=== PATIENT | female | born 1995 | race Caucasian/White ===

== ENCOUNTER 2016-07-30 15:22 | Observation (INO) ==
[2016-07-30 16:56] LABS: Bilirubin,Urine Negative (Negative); Blood,Urine Negative (Negative); Clarity,Urine Cloudy (Clear); Color,Urine Yellow (Yellow); Glucose,Urine (UA) Normal (Normal); Ketones,Urine Negative (Negative); Leukocyte Esterase,Urine Negative (Negative); Nitrite,Urine Negative (Negative); PH,Urine 6.5 pH Units (5.0-8.0); Protein,Urine Negative (Neg-Trace); Urobilinogen,Urine Normal (Normal)
[2016-07-30 16:58] LABS: Bacteria,Urine None Seen per hpf (None-Few); Hyaline Casts,Urine None Seen per lpf (None-Few); RBC,Urine 0-3 per hpf (0-3); Squamous Epithelial Cell,Urine Many per lpf (None-Few); WBC,Urine 0-3 per hpf (0-3)
--- NOTE | 2016-07-30 17:09 | OB/GYN Progress Note ---
Date of Encounter: 07/30/16 Time of Encounter: 17:05 Subjective - Subjective Principal diagnosis: cramping, pressure Interval history: 21 year-old presenting at 32 weeks gestation from office for cramping and pressure with SVE in office 1.5/-2. Pt reports intermittent discomfort since having intercourse yesterday. She denies LOF or VB. She does report urinary frequency as well. No fever, chills, flank pain, or other complaints. Good FM. Antepartum ROS: movement normal, contractions, no loss of fluid, no vaginal bleeding Objective - Vital Signs Vital Signs: Intake and Output 07/30/16 07/30/16 07/30/16 07:59 15:59 23:59 Other: Weight 150.9 kg Patient Weight 07/30/16 23:59 Weight 150.9 kg - Exam FHR comments: FHT 145BPM with moderate variability. Possible FHT deceleration noted although tracing is broken. Will continue to monitor. Abdomen: Present: soft, gravid. Absent: tenderness Uterus: Present: normal. Absent: tenderness Cervical dilation: 1.5 Cervix effacement: 70 station: -2 Comments: VE unchanged from office exam. GC and GBS cultures collected. - Labs Labs: Abnormal lab results Urine Clarity Cloudy (Clear) A 07/30/16 15:45 Ur Squamous Epith Cells Many per lpf (None-Few) H 07/30/16 15:45
--- NOTE | 2016-07-30 17:23 | OB/GYN History & Physical ---
Date of Encounter: 07/30/16 Time of Encounter: 17:21 Assessment and Plan (1) uterine contractions in third trimester, antepartum Current visit: Yes Status: Acute [place] with UC every 11 minutes with irritability in between. SVE 1.570/-2 unchanged from exam in office earlier today. Will give Celestone and IV fluid bolus. Plan for observation through steroid time. US for growth and fluid. GC and GBS cultures pending. UA pending. CBC ordered. (2) 32 weeks gestation of Current visit: Yes Status: Acute (3) Rh negative status during Current visit: Yes Status: Acute Qualifiers: Trimester: third trimester Qualified Code(s): O09.893 - Supervision of other high risk pregnancies, third trimester History of Present Illness Chief complaint: cramping, pressure HPI: Ms. Ayala is a 21 year old female presenting at 32 weeks gestation from office for cramping and pressure with SVE in office 1.570/-2. Pt reports intermittent discomfort since having intercourse yesterday. She denies LOF or VB. She does report urinary frequency as well. No fever, chills, flank pain, or other complaints. Good FM. She does have a history of Chlamydia with this although LYLY was negative. Past Med Surg Social Fam HX - Past Medical History Medical history: no medical history Psychiatric history: no psych history - Social History Smoking Status: Smoker, status unknown Smokeless Tobacco Status: No Alcohol use: occasionally Drug use: none Obstetrical History - Pregnancies : 1 Medications and Allergies Amoxicillin/Clavulanate [Augmentin] 875 mg PO BIDWM #20 tablet 12/23/14 [Rx] Doxylamine/Pyridoxine HCl [Khadar Maza 10-10 mg Tablet] 1 each PO BID #14 tablet. 04/06/16 [Rx] Allergies No Known Allergies Allergy (Verified 12/23/14 19:56) Review of System OB All systems PM: reviewed and no additional remarkable complaints except as stated Exam - Constitutional Constitutional: well developed, well nourished, mild distress - HEENT HEENT: Mucus Membranes Moist - Lungs Respiratory exam: CTAB - Cardiovascular Cardiovascular exam: RRR, +S1, +S2 - Abdomen Abdomen: Present: gravid, non tender - Extremities Extremities exam: normal inspection - Vulva Vulva: bilateral: normal - Vagina Vagina: Present: normal moisture - Cervix Dilation: 1 (1.5) Effacement: 70 Station: -2 - Uterus Uterus exam: Present: normal size - Anus/Rectum Anus/Rectum: Present: normal perianal skin Results Abnormal lab results Urine Clarity Cloudy (Clear) A 07/30/16 15:45 Ur Squamous Epith Cells Many per lpf (None-Few) H 07/30/16 15:45 All other labs normal.
[2016-07-30] MEDS ORDERED: Ringers Solution, Lactated 1,000 ML IVC ONE (17:31)
[2016-07-30] MEDS ORDERED: Ringers Solution, Lactated 1,000 ML ONE (17:46)
[2016-07-30] MEDS: Betamethasone Acet/SodPhos 6 MG/ML MDV IM SCH (17:48)
[2016-07-30 18:19] LABS: Basophils # 0.1 K/mcL (0.0-0.2); Basophils % 0.3 %; Eosinophils # 0.1 K/mcL (0.0-0.6); Eosinophils % 0.7 %; Hematocrit 32.8 % (35.3-44.9); Hemoglobin 11.2 g/dL (11.5-15.4); Immature Granulocytes % 0.9 % (0-4); Lymphocytes # 3.3 K/mcL (0.6-4.6); Lymphocytes % 18.9 %; Mean Corpuscular HGB Conc 34.1 g/dL (31.6-35.5); Mean Corpuscular Hemoglobin 29.9 pg (28.0-33.3); Mean Corpuscular Volume 87.7 fL (83.0-100.0); Mean Platelet Volume 10.9 fL (9.4-12.4); Monocytes # 0.8 K/mcL (0.0-1.3); Monocytes % 4.8 %; Neutrophils # 12.9 K/mcL (1.6-8.9); Platelet Count 286 K/mcL (140-400); Red Blood Count 3.74 M/mcL (3.82-4.97); Red Cell Distribution Width 12.9 % (11.5-14.5); Segmented Neutrophils % 74.4 %
--- NOTE | 2016-07-30 22:40 | OB/GYN Progress Note ---
Date of Encounter: 07/30/16 Time of Encounter: 22:36 - Assessment and Plan (1) uterine contractions in third trimester, antepartum Current Visit: Yes Status: Acute Stable antepartum. Continue current management plan. US reviewe fetus is in the 58 percentile, but OLVIN is low in the less than 5th percentile at 8.2cm. US discussed with Dr. Auguste. Will enourage patient to hydrate overnight and reevaluate in AM. Subjective - Subjective Interval history: Patient states is feeling more comfortable, states contractions have decreased and only approximately 3 times an hour. Patient denies vaginal bleeding leaking of fluid. Endorses good movement Antepartum ROS: movement normal, contractions (Pt now states only feels contractions a couple times an hour. ), no new complaints, no loss of fluid, no vaginal bleeding Objective - Vital Signs Vital Signs: Intake and Output 07/30/16 07/30/16 07/30/16 07:59 15:59 23:59 Intake Total 1240 / 1240 Balance 1240 / 1240 Intake: IV Fluids 1000 / 1000 Lactated Ringers 1,000 ML 1000 / 1000 @ 3750 mls/hr IVC .Q16M ONE Rx#:[id number] Oral 240 / 240 Other: Meal Dinner Percent of Meal Consumed 90% Weight 150.9 kg Patient Weight 07/30/16 23:59 Weight 150.9 kg - Exam FHR: auscultation normal (Baseline 125/ +accels/ Occasional variable noted. ) Auscultation: bilateral: normal Abdomen: Present: soft, gravid - Labs Labs: Abnormal lab results WBC 17.4 K/mcL (4.3-11.1) H 07/30/16 17:58 RBC 3.74 M/mcL (3.82-4.97) L 07/30/16 17:58 Hgb 11.2 g/dL (11.5-15.4) L 07/30/16 17:58 Hct 32.8 % (35.3-44.9) L 07/30/16 17:58 Neutrophils # 12.9 K/mcL (1.6-8.9) H 07/30/16 17:58 Urine Clarity Cloudy (Clear) A 07/30/16 15:45 Ur Squamous Epith Cells Many per lpf (None-Few) H 07/30/16 15:45
[2016-07-30] MEDS: Acetaminophen 325 MG TABLET PO PRN (23:21)
[2016-07-31] MEDS ORDERED: Prenatal Vit/FA 1 EACH TABLET PO SCH (09:00)
[2016-07-31] MEDS ORDERED: Ringers Solution, Lactated 1,000 ML IVC ONE (12:25)
[2016-07-31] MEDS ORDERED: Ringers Solution, Lactated 1,000 ML ONE (12:25)
[2016-07-31] MEDS ORDERED: Acetaminophen 325 MG TABLET PO ONE (12:26)
[2016-07-31] MEDS: Acetaminophen 325 MG TABLET PO PRN (12:30)
--- NOTE | 2016-07-31 12:37 | OB/GYN Progress Note ---
Date of Encounter: 07/31/16 Time of Encounter: 12:34 - Assessment and Plan (1) 32 weeks gestation of Current Visit: Yes Status: Acute admitted for observation (2) uterine contractions in third trimester, antepartum Current Visit: Yes Status: Acute continue EFM and toco monitoring Subjective - Subjective Principal diagnosis: contractions Interval history: Patient reports feeling low back pain and cramping. 3-4 contractions noted per hour. Discussed patient with Dr. Navarro. Will give IV fluid bolus and continue monitoring. Patent had history of BV and yeast so a vaginosis panel was collected. SVE 1/60/-2 and ballotable per NICHOL Ferguson. FHR 130 bpm moderate variability +15x15 accels no decels noted. Cat. 1 tracing. Antepartum ROS: new complaints, movement normal, contractions, no loss of fluid, no vaginal bleeding Objective - Vital Signs Vital Signs: Intake and Output 07/30/16 07/31/16 07/31/16 23:59 07:59 15:59 Intake Total 1240 / 1240 Balance 1240 / 1240 Intake: IV Fluids 1000 / 1000 Lactated Ringers 1,000 ML 1000 / 1000 @ 3750 mls/hr IVC .Q16M ONE Rx#:[id number] Oral 240 / 240 Other: Meal Dinner Percent of Meal Consumed 90% Weight 150.9 kg - Exam FHR: auscultation normal, category 1 FHR comments: 130 bpm baseline Auscultation: bilateral: normal Abdomen: Present: normal appearance, soft, gravid Uterus: Present: normal Cervical dilation: 1 Cervix effacement: 60 station: -2 - Labs Labs: Abnormal lab results WBC 17.4 K/mcL (4.3-11.1) H 07/30/16 17:58 RBC 3.74 M/mcL (3.82-4.97) L 07/30/16 17:58 Hgb 11.2 g/dL (11.5-15.4) L 07/30/16 17:58 Hct 32.8 % (35.3-44.9) L 07/30/16 17:58 Neutrophils # 12.9 K/mcL (1.6-8.9) H 07/30/16 17:58 Urine Clarity Cloudy (Clear) A 07/30/16 15:45 Ur Squamous Epith Cells Many per lpf (None-Few) H 07/30/16 15:45
[2016-07-31 13:44] LABS: Candida DNA Not Detected (Not Detect); Gardnerella DNA Not Detected (Not Detect); Trichomonas DNA Not Detected (Not Detect)
[2016-07-31] MEDS: Betamethasone Acet/SodPhos 6 MG/ML MDV IM SCH (16:14)
--- NOTE | 2016-08-06 08:07 | Discharge Summary ---
Date of Encounter: 07/31/16 Time of Encounter: 16:11 - Discharge Diagnosis (1) 32 weeks gestation of Priority: Primary Status: Acute Comments: admit for observation labor (2) uterine contractions in third trimester, antepartum Priority: Secondary Status: Acute Comments: betamethasone x 2 no cervical change in 48 hours RNST - Discharge Medications Prescriptions: HydrOXYzine Pamoate [Vistaril] 25 mg PO HS #10 capsule Home Medications: Doxylamine/Pyridoxine HCl [Khadar Maza 10-10 mg Tablet] 1 each PO BID #14 tablet. 04/06/16 [Rx] HydrOXYzine Pamoate [Vistaril] 25 mg PO HS #10 capsule 07/31/16 [Rx] Allergies/Adverse Reactions: Allergies No Known Allergies Allergy (Verified 12/23/14 19:56) Data Procedures and tests throughout hospitalization: Laboratory Tests 07/30/16 07/30/16 07/30/16 15:45 16:56 17:58 WBC 17.4 H RBC 3.74 L Hgb 11.2 L Hct 32.8 L MCV 87.7 MCH 29.9 MCHC 34.1 RDW 12.9 Plt Count 286 MPV 10.9 Immature Gran % 0.9 Seg Neutrophils % 74.4 Lymphocytes % 18.9 Monocytes % 4.8 Eosinophils % 0.7 Basophils % 0.3 Neutrophils # 12.9 H Lymphocytes # 3.3 Monocytes # 0.8 Eosinophils # 0.1 Basophils # 0.1 Urine Color Yellow Urine Clarity Cloudy A Urine pH 6.5 Ur Specific [place] 1.020 Urine Protein Negative Urine Glucose (UA) Normal Urine Ketones Negative Urine Blood Negative Urine Nitrite Negative Urine Bilirubin Negative Urine Urobilinogen Normal Ur Leukocyte Esterase Negative Urine Microscopic RBC 0-3 Urine Microscopic WBC 0-3 Ur Squamous Epith Cells Many H Urine Bacteria None Seen Hyaline Casts None Seen Ur Culture Indicated? NO Palma species DNA Chlam trachomat DNA PCR NOT DETECTED Gardnerella DNA Probe N.gonorrhoeae DNA (PCR) NOT DETECTED Trichomonas DNA Probe 07/31/16 12:46 WBC RBC Hgb Hct MCV MCH MCHC RDW Plt Count MPV Immature Gran % Seg Neutrophils % Lymphocytes % Monocytes % Eosinophils % Basophils % Neutrophils # Lymphocytes # Monocytes # Eosinophils # Basophils # Urine Color Urine Clarity Urine pH Ur Specific [place] Urine Protein Urine Glucose (UA) Urine Ketones Urine Blood Urine Nitrite Urine Bilirubin Urine Urobilinogen Ur Leukocyte Esterase Urine Microscopic RBC Urine Microscopic WBC Ur Squamous Epith Cells Urine Bacteria Hyaline Casts Ur Culture Indicated? Palma species DNA Not Detected Chlam trachomat DNA PCR Gardnerella DNA Probe Not Detected N.gonorrhoeae DNA (PCR) Trichomonas DNA Probe Not Detected - Impressions ITS Impressions Obstetrics Ultrasound 07/30/16 17:46 IMPRESSION: Single live intrauterine with gestational age of 31 weeks 4 days by current sonographic biometry. The estimated due date is 09/27/2016. Below normal amniotic fluid volume less than 5th percentile as detailed. D/ / Clemente Calvillo MD / Clemente Calvillo MD Interpreting Provider: Clemente Calvillo MD Date of admission: 07/30/16 15:22 Primary care physician: Kami Britton Discharging clinician: Thao Cobian Anticipated date of discharge: 07/31/16 - Patient Status Disposition: Home, Self-Care Condition: Good - Discharge Instructions Follow Up With: Kami Parra MD [Primary Care Provider] - Thao Cobian CNM [Non-Partnered Physician] - Additional Instructions: LABOR AND DELIVERY DISCHARGE INSTRUCTIONS Signs and Symptoms to be Reported to your Doctor Immediately: * Sudden gush, continuous or intermittent lead of fluid from vagina (note the time of gush and color of fluid) * Onset of bright red vaginal bleeding with or without pain (if you had a vaginal exam during this visit you may notice some dark red spotting. This is normal.) * Lower abdominal cramping or backache that is premenstrual-like feeling. * More than 6 contractions in one hour. * Burning during urination, having to urinate more frequently or pain in your mid-back. * A change in the baby's activity. This could be an increase or decrease in activity. * Severe headache which does not go away with tylenol. * Sudden swelling in the face, hands, arms and/or legs. * Upper abdominal pain - sometimes associated with heartburn or nausea and is not relieved by Maalox, Mylanta or Tums. * Dizziness or blurred vision or visual disturbances (seeing stars/lights). * Kick Counts One hour after a meal, lay down on one side in a quiet place. Count the number of margarita the baby moves during an hour. If less than 6 movements, notify your physician. Diet: *Force fluids - 8-10 tall glasses of fluid per day. May include popsicles and jello. 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
== END 2016-07-31 16:45 | disposition home or self-care (01) ==
LOC: 1NENULAB
PROVIDERS: ADMIT Advanced Practice Midwife; ATTEND Advanced Practice Midwife

== ENCOUNTER 2016-09-04 02:01 | Inpatient (IN) ==
--- NOTE | 2016-09-04 00:04 | OB/GYN Progress Note ---
Date of Encounter: 09/04/16 Time of Encounter: 00:02 - Assessment and Plan (1) 38 weeks gestation of Current Visit: Yes Status: Acute (2) Uterine contractions Current Visit: Yes Status: Acute [place] contractions for 2 hours and recheck cervix Subjective - Subjective Interval history: Pt states has been having contractions every 5 minutes for this evening. Reports good movement, denies vaginal bleeding and leaking of fluid. Antepartum ROS: movement normal, contractions, no loss of fluid, no vaginal bleeding Objective - Exam Auscultation: bilateral: normal Abdomen: Present: normal appearance, soft, gravid Uterus: Present: normal Cervical dilation: /-
[~2016-09-04 02:01] MED LIST: *HR* Nalbuphine 20 MG/ML AMPUL IVP PRN; Ringers Solution, Lactated 1,000 ML ONE
--- NOTE | 2016-09-04 02:26 | OB/GYN History & Physical ---
Date of Encounter: 09/04/16 Time of Encounter: 02:24 Assessment and Plan (1) 38 weeks gestation of Current visit: Yes Status: Acute (2) Uterine contractions Current visit: Yes Status: Acute Patient with cervical change from 3 cm to 4 cm, will admit patient for labor Patient may half Nubain and epidural as desired Clear liquid diet Anticipate History of Present Illness HPI: Ms. Ayala is a 21 year old female presents to triage with contractions that started this afternoon had become progressively worse this evening and then became regular at every 5 minutes apart. complicated with SGA infant and placental lakes noted on last ultrasound. Reports good movement, denies leaking of fluid or vaginal bleeding. Labs: A-, GBS negative, rubella immune, all other serologies negative Past Med Surg Social Fam HX - Past Medical History Medical history: no medical history Psychiatric history: no psych history - Social History Smoking Status: Smoker, status unknown Packs per day: 1/2 Smokeless Tobacco Status: No Alcohol use: occasionally Drug use: none - Family History Maternal Grandmother Living Status: Still Living Hx Family Cardiac Disorders: No Hx Family Respiratory Disorders: No Hx Family Cancer: No Hx Family GI Disorders: Yes (chron's) Hx Family Genitourinary Disorders: No Hx Family Endocrine Disorder: Yes (diabetic) Hx Family Musculoskeletal Disorders: No Hx Family Neuromuscular Disorders: No Hx Family Neurologic Disorders: No Hx Family HEENT Disorders: No Hx Family Autoimmune Disorders: No Hx Family Reproductive Disorders: No Hx Family Psychosocial Disorders: No Hx Family Medical Disorders: No Obstetrical History - Pregnancies : 1 Para: 0 Term: 0 : 0 Ab's: 0 Livin Medications and Allergies Formula Tablet 1 tab PO DAILY 09/04/16 [History] Allergies No Known Allergies Allergy (Verified 12/23/14 19:56) Exam - Vital Signs Vital signs: Initial Vital Signs Temp Pulse Resp BP 98.4 F 83 16 142/85 09/04/16 00:16 09/04/16 00:16 09/04/16 00:16 09/04/16 00:16 - Constitutional Constitutional: well developed, well nourished, no acute distress, average body habitus - Neck Neck exam: full ROM - Lungs Respiratory exam: CTAB - Cardiovascular Cardiovascular exam: RRR, +S1, +S2 - Abdomen Abdomen: Present: bowel sounds normal, gravid, non tender - Extremities Extremities exam: normal capillary refill, normal inspection - Vulva Vulva: bilateral: normal - Vagina Vagina: Present: normal moisture Results Result Diagrams: 09/04/16 00:40 All other labs normal. - VTE Reasons for not Prescribing Prophylaxis: Medical contraindication
[2016-09-04] MEDS ORDERED: Naloxone 0.4 MG/ML INJ IVP PRN (02:59)
[2016-09-04] MEDS ORDERED: Famotidine 20 MG/2 ML VIAL IVP PRN (02:59)
[2016-09-04] MEDS ORDERED: Ondansetron 4 MG/2 ML VIAL IVP PRN (02:59)
[2016-09-04] MEDS ORDERED: Metoclopramide 10 MG/2 ML VIAL IVP PRN (02:59)
[2016-09-04] MEDS ORDERED: Ringers Solution, Lactated 1,000 ML IVC SCH (03:00)
[2016-09-04 03:34] LABS: Basophils % 0.2 %; Eosinophils # 0.1 K/mcL (0.0-0.6); Eosinophils % 0.4 %; Hemoglobin 11.2 g/dL (11.5-15.4); Immature Granulocytes % 0.6 % (0-4); Lymphocytes # 3.5 K/mcL (0.6-4.6); Lymphocytes % 20.3 %; Mean Corpuscular HGB Conc 33.9 g/dL (31.6-35.5); Mean Corpuscular Hemoglobin 29.1 pg (28.0-33.3); Mean Corpuscular Volume 85.7 fL (83.0-100.0); Mean Platelet Volume 11.3 fL (9.4-12.4); Monocytes # 1.2 K/mcL (0.0-1.3); Neutrophils # 12.3 K/mcL (1.6-8.9); Platelet Count 305 K/mcL (140-400); Red Blood Count 3.85 M/mcL (3.82-4.97); Red Cell Distribution Width 12.9 % (11.5-14.5); Segmented Neutrophils % 71.5 %
[2016-09-04] MEDS ORDERED: Ringers Solution, Lactated 1,000 ML ONE (03:46)
[2016-09-04] MEDS ORDERED: *HR* FentaNYL (PF) 100 MCG/2 ML VIAL ONE (03:53)
[2016-09-04] MEDS ORDERED: *HR* Ropivacaine/PF 0.2% 10 ML AMPUL ONE ×2 (03:53→04:35)
[2016-09-04] MEDS ORDERED: Epidural Premix (fent/bupiv) 110 ML EP ONE ×2 (03:53→06:53)
--- NOTE | 2016-09-04 04:21 | Anesthesia Evaluation PreOp ---
Date of Encounter: 09/04/16 Time of Encounter: 03:50 - Past History Planned Operation: nieves Cardiac History: Denies any Significant Hx Pulmonary History: Smoker (1 ppd) TUGBOAT CAPTAIN History: Denies Any Significant HX Other Medical History: Denies Any Significant HX Anesthesia History: No Prior Anesthetic Complications, Past Anesthesia : Yes (37 plus 4, ) Alcohol Use: occasionally Drug use: none Medications and Allergies Formula Tablet 1 tab PO DAILY 09/04/16 [History] Allergies No Known Allergies Allergy (Verified 12/23/14 19:56) - Meds/Allergy Pre-op Review Medications Reviewed: Yes Allergies Reviewed: Yes Beta Blockers on Current Med List: No Anesthesia Results - Labs 09/04/16 00:40 Anesthesia Exam O2 Sat Height 1.78 m Weight 71.2 kg Vital Signs Temp Pulse Resp BP 98.4 F 83 16 142/85 09/04/16 00:16 09/04/16 00:16 09/04/16 00:16 09/04/16 00:16 Height: 70 Weight: 71 - HEENT Pupil (Motor): Pupils equal Mallampati: II Teeth: Normal Oral Opening: Greater than 3 - TUGBOAT CAPTAIN LOC: Oriented TUGBOAT CAPTAIN Motor: Normal RUE, Normal LUE, Normal RLE, Normal LLE, Normal Face TUGBOAT CAPTAIN Sensory: Normal: RUE, LUE, RLE, LLE, Face - Cardiac Rhythm: Regular Murmur: None JVD: No Carotid Bruit: No - Pulmonary Breath Sounds: bilateral Clear Respiratory Effort: Symmetrical Anesthesia Assess/Plan ASA Score: 2 Modified Christ Scale for Level of Consciousness: Cooperative, oriented, and tranquil Anesthetic Plan: Regional Autologous Blood: No Monitoring Plan: Standard Monitors
[2016-09-04] MEDS ORDERED: *HR* FentaNYL (PF) 100 MCG/2 ML VIAL EP ONE (04:23)
[2016-09-04] MEDS ORDERED: *HR* Ropivacaine/PF 0.2% 10 ML AMPUL EP ONE (04:23)
[2016-09-04] MEDS ORDERED: EPHEDrine 50 MG/ML VIAL IVP PRN (04:23)
--- NOTE | 2016-09-04 04:26 | Anesthesia Procedures ---
Date of Encounter: 09/04/16 Time of Encounter: 04:24 Procedures: Anesthesia - Epidural/Spinal Patient ID/Chart reviewed: Yes Patient examined: Yes OB Eval: Gestational age: 37 OB Eval: : 1 OB Eval: Hx Para: 0 OB Eval: Contractions: Non-stressed pattern Consent Obtained: Yes Supplemental Oxygen: None/Room Air Site Prep: Aseptic Technique, 0.5% Chlorhexidine/Alcohol Patient position: upright Local Anesthetic: Lidocaine 1% Amount of Local Anesthetic used: 3 Touhy Needle Gauge: 18 Touhy Needle Depth (cm): 5 Catheter Depth at Skin (cm): 12 Test Dose (1.5% Lido + Epi): Volume given (mls): 3 Test Dose Result: Negative Loading Dose: 0.25% Marcaine (mls): 5 Loading Dose: Fentanyl (mcg): 100 Loading Dose: Other: 3ml nss Loading Dose Administered: Thru Touhy Needle Infusion Med: 0.125% Bupivacaine w/ 2 mcg/ml Fentanyl Infusion Rate (mls/hr): [address]: Tegaderm Interspace Used: L3-L4 Loss of Resistance (ALBERTO): Yes Blood: No CSF: No Paresthesia: No Procedure: strict asepsis, good alberto, fhr unchanged
[2016-09-04] MEDS ORDERED: Epidural Premix (fent/bupiv) 110 ML EP SCH (04:30)
[2016-09-04] MEDS ORDERED: Oxytocin 20 units/ LR 1000 mL 20 UNIT/1,000 ML BAG IVC ONE ×2 (04:53→06:59)
--- NOTE | 2016-09-04 05:24 | OB/GYN Procedure Note ---
Delivery - Delivery Date: 09/04/16 Provider: Jacqueline Alberto ([place]) Intrapartum events: none Delivery induction: none Delivery monitor: external FHT, external uterine Anesthesia: epidural Estimated Blood Loss: 150 - (s) Infant A Infant Delivery Date: 09/04/16 Infant Delivery Time: 04:52 Presentation: vertex Position: BARRY Route of delivery: Gender: Male Viability: Viable Pounds: 5 Ounces: 7 Weight Gram: 2.47 kg at 1 minute: 8 at 5 mins: 9 Shoulder Dystocia: not encountered Specimens collected: cord blood Placenta: spontaneous Cord: 3 umbilical vessels - Repair Episiotomy: none Laceration Description: Labial - Complications Delivery complications: none - Disposition Mom disposition: stable in LDR [place] disposition: stable in LDR - Comments Comments: Pt complete began maternal bearing down efforts to of liveborn male. Vertex delivered BARRY, no nuchal cord noted, shoulders easily followed. no dystocia noted vigorous infant placed on maternal abdomen. Apgars 8/9. Placenta delivered spontaneously and intact on inspection EBL 150. bilateral labial tears noted hemostatic and not repaired. Dr. Auguste present for entire procedure. .
[2016-09-04 06:16] LABS: Amphetamine Screen,Urine Negative ng/mL (Cutoff=1000); Barbiturate Screen,Urine Negative ng/mL (Cutoff=200); Benzodiazepines Screen,Urine Negative ng/mL (Cutoff=200); Cannabinoid Screen,Urine Negative ng/mL (Cutoff = 50); Cocaine Screen,Urine Negative ng/mL (Cutoff= 300); Opiate Screen,Urine Negative ng/mL (Cutoff=300); Phencyclidine Screen,Urine Negative ng/mL (Cutoff=25)
[2016-09-04] MEDS ORDERED: Acetaminophen 325 MG TABLET PO PRN (07:38)
[2016-09-04] MEDS ORDERED: Lanolin 7 G OINT...G. TP PRN (07:38)
[2016-09-04] MEDS ORDERED: Benzocaine/Menthol 56 GM AEROSOL SPRAY TP PRN (07:38)
[2016-09-04] MEDS ORDERED: Oxytocin 20 units/ LR 1000 mL 20 UNIT/1,000 ML BAG IVC SCH (07:38)
[2016-09-04] MEDS ORDERED: Prenatal Vit/FA 1 EACH TABLET PO SCH (09:00)
[2016-09-04] MEDS: Ibuprofen 600 MG TABLET PO PRN ×3 (09:29→22:19)
--- NOTE | 2016-09-05 08:14 | Discharge Summary ---
Date of Encounter: 09/05/16 Time of Encounter: 08:11 - Discharge Diagnosis (1) Vaginal delivery Priority: Primary Status: Acute Comments: Continue routine care 3 day hold discharge patient today to guest follow up in 4-6 weeks with CNM - Discharge Medications Prescriptions: Ibuprofen [Motrin] 600 mg PO Q6HR PRN #60 tablet PRN Reason: Cramping Home Medications: Ibuprofen [Motrin] 600 mg PO Q6HR PRN #60 tablet 09/05/16 [Rx] Vit/FA 1 each PO DAILY tablet 09/05/16 [Rx] Allergies/Adverse Reactions: Allergies No Known Allergies Allergy (Verified 12/23/14 19:56) Data Procedures and tests throughout hospitalization: Laboratory Tests 09/04/16 09/04/16 09/04/16 00:40 00:55 05:40 WBC 17.2 H RBC 3.85 Hgb 11.2 L Hct 33.0 L MCV 85.7 MCH 29.1 MCHC 33.9 RDW 12.9 Plt Count 305 MPV 11.3 Immature Gran % 0.6 Seg Neutrophils % 71.5 Lymphocytes % 20.3 Monocytes % 7.0 Eosinophils % 0.4 Basophils % 0.2 Neutrophils # 12.3 H Lymphocytes # 3.5 Monocytes # 1.2 Eosinophils # 0.1 Basophils # 0.0 Urine Opiates Screen Negative Ur Barbiturates Screen Negative Ur Phencyclidine Scrn Negative Ur Amphetamines Screen Negative U Benzodiazepines Scrn Negative Urine Cocaine Screen Negative U Marijuana (THC) Screen Negative Baby's Blood Type A RH NEGATIVE Mother's Blood Type A RH NEGATIVE Rhogam Indicated NO Labs on day of discharge: Labs from last 24 hours 09/04/16 05:40 Baby's Blood Type A RH NEGATIVE Mother's Blood Type A RH NEGATIVE Rhogam Indicated NO Date of admission: 09/04/16 02:01 Primary care physician: Kami Britton Consults: 09/04/16 07:38 Consult to Bench Carpenter [CONS] Routine Comment: Vaginal delivery, consult needed Consult to Clerical Warehouseman [CONS] Routine Reason for SW Consult: drug use history Discharging clinician: Thao Cobian Anticipated date of discharge: 09/05/16 - Patient Status Disposition: Home, Self-Care Condition: Good Functional capacity at discharge: independent ambulation - Discharge Instructions Follow Up With: Kami Parra MD [Primary Care Provider] - Jacqueline Alberto CNM [Advanced Practice Nurse] - - Diet and Activity Activity: increase activity as tolerated Diet: regular diet Hospital Course Reason for admission: active labor Delivery: Episiotomy: none Laceration: other (bilateral labial lacerations) Other procedures: none complications: none Discharge diagnosis: IUP at term delivered [place] baby: male (bottle feeding) Time Attestation: Total time spent providing and/or coordinating discharge services: Time Spent: Less than 30 minutes Exam - Constitutional Vitals: Temp Pulse Resp BP Pulse Ox 98.0 F 72 14 127/81 98 09/05/16 03:35 09/05/16 03:35 09/05/16 03:35 09/05/16 03:35 09/05/16 03:35 General appearance IM: A&O X 3, pleasant, answers questions appropriately - Respiratory Respiratory exam: Present: CTAB - Cardiovascular Cardiovascular exam IM: Present: RRR, +S1, +S2 - GI/Abdominal GI/Abdominal exam IM: normal bowel sounds - Uterine Tone: Firm Uterus Position: 2 Fingers Below Umbilicus, Midline - Extremities Exam Extremities exam IM: Present: full ROM, normal capillary refill, normal inspection - Neurological Exam Neurological exam: alert, oriented X3, reflexes normal
[2016-09-05] MEDS: Ibuprofen 600 MG TABLET PO PRN (08:34)
[2016-09-05 09:21] VITALS: BP 131/88
== END 2016-09-05 11:15 | disposition home or self-care (01) | DRG 775 ==
LOC: 1NENULAB → 1NENUOBS 07:37
PROVIDERS: ADMIT Advanced Practice Midwife; ATTEND Advanced Practice Midwife

== ENCOUNTER → 2018-02-11 23:15 | Observation (INO) ==
[2018-02-11 22:35] LABS: Amphetamine Screen,Urine Negative ng/mL (Cutoff=1000); Barbiturate Screen,Urine Negative ng/mL (Cutoff=200); Benzodiazepines Screen,Urine Negative ng/mL (Cutoff=200); Cannabinoid Screen,Urine Negative ng/mL (Cutoff = 50); Cocaine Screen,Urine Negative ng/mL (Cutoff= 300); Opiate Screen,Urine Negative ng/mL (Cutoff=300); Phencyclidine Screen,Urine Negative ng/mL (Cutoff=25)
--- NOTE | 2018-02-11 23:15 | Discharge Summary ---
Date of Encounter: 02/11/18 Time of Encounter: 23:14 - Discharge Diagnosis (1) Vaginal discharge during in third trimester Priority: Primary Status: Acute Comments: Nitrazine negative No pooling head is ballotable (2) 37 weeks gestation of Priority: Secondary Status: Acute Comments: Follow-up next week as scheduled Labor precautions discussed Discharge home - Discharge Medications Home Medications: Vitamins 1 tab PO DAILY 01/25/18 [History] Allergies/Adverse Reactions: Allergy/AdvReac Type Severity Reaction Status Date / Time No Known Allergies Allergy Verified 02/11/18 22:05 Data Procedures and tests throughout hospitalization: Laboratory Tests 02/11/18 22:14 Urine Opiates Screen Negative Ur Barbiturates Screen Negative Ur Phencyclidine Scrn Negative Ur Amphetamines Screen Negative U Benzodiazepines Scrn Negative Urine Cocaine Screen Negative U Marijuana (THC) Screen Negative Ur Drug Screen Interp See Below Labs on day of discharge: Labs from last 24 hours 02/11/18 22:14 Urine Opiates Screen Negative Ur Barbiturates Screen Negative Ur Phencyclidine Scrn Negative Ur Amphetamines Screen Negative U Benzodiazepines Scrn Negative Urine Cocaine Screen Negative U Marijuana (THC) Screen Negative Ur Drug Screen Interp See Below Date of admission: 02/11/18 21:52 Discharging clinician: Blanche King Anticipated date of discharge: 02/11/18 - Patient Status Disposition: Home, Self-Care Condition: Good Functional capacity at discharge: independent ambulation Overall status at discharge: patient is back to baseline - Discharge Instructions Follow Up With: Blanche King [Advanced Practice Nurse] - - Diet and Activity Activity: increase activity as tolerated Diet: regular diet 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 She denies any further loss of fluid. She reports intermittent contractions. SVE on arrival 4-5 and no change after one hour. Patient discharged home in stable condition with labor parameters. Time Attestation: Total time spent providing and/or coordinating discharge services: Time Spent: Less than 30 minutes Exam - Constitutional General appearance IM: A&O X 3, answers questions appropriately - Respiratory Respiratory exam: Present: CTAB - Cardiovascular Cardiovascular exam IM: Present: RRR, +S1, +S2 - GI/Abdominal GI/Abdominal exam IM: normal bowel sounds, no peritoneal signs - Rectal Rectal exam: deferred - Uterine Tone: Firm - Extremities Exam Extremities exam IM: Present: normal capillary refill, normal inspection, radial pulses palpable and symmetrical - Neurological Exam Neurological exam: alert, CN II-XII intact, normal gait, oriented X3, reflexes normal, no focal deficits, strengths equal and symetr throughout - VTE Reasons for not Prescribing Prophylaxis: Treatment not Indicated - Low risk for VTE
== END | disposition home or self-care (01) ==
LOC: 1NENULAB
PROVIDERS: ADMIT Advanced Practice Midwife; ATTEND Advanced Practice Midwife

== ENCOUNTER 2018-02-17 13:48 | Inpatient (IN) ==
[2018-02-17] MEDS ORDERED: EPHEDrine 50 MG/ML VIAL IVP PRN (14:23)
[2018-02-17] MEDS ORDERED: Epidural Premix (fent/bupiv) 110 ML EP SCH (14:30)
[2018-02-17] MEDS ORDERED: Ondansetron 4 MG/2 ML VIAL IVP PRN (14:32)
[2018-02-17] MEDS ORDERED: Metoclopramide 10 MG/2 ML VIAL IVP PRN (14:32)
[2018-02-17] MEDS ORDERED: Naloxone 0.4 MG/ML INJ IVP PRN (14:32)
[2018-02-17] MEDS ORDERED: *HR* Nalbuphine 10 MG/ML AMPUL IVP PRN (14:32)
[2018-02-17] MEDS ORDERED: Famotidine 20 MG/2 ML VIAL IVP PRN (14:32)
--- NOTE | 2018-02-17 14:32 | Anesthesia Evaluation PreOp ---
Date of Encounter: 02/17/18 Time of Encounter: 14:31 - Past History Planned Operation: vaginal del, spont. Cardiac History: Denies any Significant Hx Pulmonary History: Smoker [employer] History: Denies Any Significant HX Other Medical History: Denies Any Significant HX Anesthesia History: No Prior Anesthetic Complications, Past Anesthesia Alcohol Use: none Drug use: none Medications and Allergies Vitamins 1 tab PO DAILY 01/25/18 [History] Allergy/AdvReac Type Severity Reaction Status Date / Time No Known Allergies Allergy Verified 02/11/18 22:05 Anesthesia Exam - HEENT Pupil (Motor): Pupils equal Mallampati: II Teeth: Normal Oral Opening: Greater than 3 - [employer] LOC: Oriented [employer] Motor: Normal RUE, Normal LUE, Normal RLE, Normal LLE, Normal Face [employer] Sensory: Normal: RUE, LUE, RLE, LLE, Face - Cardiac Rhythm: Regular Murmur: None - Pulmonary Breath Sounds: bilateral Clear Respiratory Effort: Symmetrical Anesthesia Assess/Plan ASA Score: 2 Modified Christ Scale for Level of Consciousness: Cooperative, oriented, and tranquil Anesthetic Plan: General, Regional Monitoring Plan: Standard Monitors Recovery Plan: PACU
[2018-02-17] MEDS ORDERED: Epidural Premix (fent/bupiv) 110 ML EP ONE (14:35)
[2018-02-17] MEDS ORDERED: Lidocaine -MPF 2% 5 ML VIAL ONE (14:39)
[2018-02-17] MEDS ORDERED: Ringers Solution, Lactated 1,000 ML IVC SCH (14:45)
[2018-02-17 15:23] LABS: Amphetamine Screen,Urine Negative ng/mL (Cutoff=1000); Barbiturate Screen,Urine Negative ng/mL (Cutoff=200); Benzodiazepines Screen,Urine Negative ng/mL (Cutoff=200); Cannabinoid Screen,Urine Negative ng/mL (Cutoff = 50); Cocaine Screen,Urine Negative ng/mL (Cutoff= 300); Opiate Screen,Urine Negative ng/mL (Cutoff=300); Phencyclidine Screen,Urine Negative ng/mL (Cutoff=25)
[2018-02-17] MEDS ORDERED: Penicillin G Potassium 5,000,000 UNIT in 0.9 % Sodium Chloride Mini Bag 100 ML IVPB ONE (15:24)
[2018-02-17 15:38] LABS: Basophils % 0.3 %; Eosinophils % 0.1 %; Hematocrit 36.2 % (35.3-44.9); Immature Granulocytes % 0.7 % (0-4); Lymphocytes # 2.5 K/mcL (0.6-4.6); Lymphocytes % 17.9 %; Mean Corpuscular HGB Conc 33.1 g/dL (31.6-35.5); Mean Corpuscular Hemoglobin 28.5 pg (28.0-33.3); Mean Platelet Volume 11.5 fL (9.4-12.4); Monocytes # 0.6 K/mcL (0.0-1.3); Monocytes % 4.1 %; Platelet Count 285 K/mcL (140-400); Red Blood Count 4.21 M/mcL (3.82-4.97); Red Cell Distribution Width 12.6 % (11.5-14.5); Segmented Neutrophils % 76.9 %
[2018-02-17 16:03] LABS: Neutrophils # 10.5 K/mcL (1.6-8.9)
--- NOTE | 2018-02-17 16:06 | Anesthesia Procedures ---
Addendum entered and electronically signed by Bg Cox CRNA 02/22/18 06:18: Addendum entered and electronically signed by Deo Espinosa CRNA 02/18/18 07:20: Delivery Date: 02/17/18 Infant Delivery Time: 17:27 Original Note: Date of Encounter: 02/17/18 Time of Encounter: 15:42 Procedures: Anesthesia - Epidural/Spinal Patient ID/Chart reviewed: Yes Patient examined: Yes OB Eval: : 2 OB Eval: Hx Para: 1 OB Eval: Dilated at (cm): 6 OB Eval: Contractions: Non-stressed pattern Consent Obtained: Yes Supplemental Oxygen: None/Room Air Site Prep: Aseptic Technique, Sterile prep and drape, 0.5% Chlorhexidine/Alcohol Patient position: upright Local Anesthetic: Lidocaine 1% Amount of Local Anesthetic used: 2 Touhy Needle Gauge: 18 Touhy Needle Depth (cm): 7 Catheter Depth at Skin (cm): 10 Test Dose (1.5% Lido + Epi): Volume given (mls): 3 Test Dose Result: Negative Loading Dose: Other: 10ml from solution Loading Dose Administered: Thru Catheter Infusion Med: 0.125% Bupivacaine w/ 2 mcg/ml Fentanyl Infusion Rate (mls/hr): [address]: Tegaderm, Tape Interspace Used: L3-L4 Loss of Resistance (ALBERTO): Yes (saline) Blood: No CSF: No Paresthesia: No Procedure: vss though out procedure, FHR via rn's
[2018-02-17 16:07] LABS: Platelet Clumps Few (Not Present)
[2018-02-17] MEDS ORDERED: Lidocaine/EPI 1:200k 2% PF 20 ML VIAL ONE (16:10)
--- NOTE | 2018-02-17 16:22 | OB/GYN History & Physical ---
Date of Encounter: 02/17/18 Time of Encounter: 16:18 Assessment and Plan (1) GBS (group B Streptococcus carrier), +RV culture, currently Current visit: Yes Status: Acute Penicillin prophylaxis to start immediately and every 4 hours until delivery (2) Rh negative status during Current visit: Yes Status: Acute Rhogam evaluation . Qualifiers: Trimester: third trimester Qualified Code(s): O09.893 - Supervision of other high risk pregnancies, third trimester; Z67.91 - Unspecified blood type, Rh negative (3) 38 weeks gestation of Current visit: Yes Status: Acute Admitted for spontaneous labor at 38 weeks 1 day. Begin penicillin prophylaxis for positive GBS. Expectant management of labor. Patient may have epidural when she desires. Anticipate (4) Non-stress test reactive Current visit: Yes Status: Acute FHR 130 bpm, moderate variability, +15x15 accels, no decels. Ctx q2-4 minutes. History of Present Illness Chief complaint: Spontaneous Labor at 38w1d HPI: Ms. Ayala is a 22 year old female at 38 weeks 1 day gestation. She reports positive movement, denies vaginal bleeding and leakage of fluid. Patient states she started jacinda today at 11:00. She reports her last exam in the office was 4 cm last week. Blood type A- GBS positive HBsAg negative Rubella immune Varicella immune HIV-negative T Palladium negative Past Med Surg Social Fam HX - Past Medical History Source: patient Medical history: no medical history Psychiatric history: no psych history - Past Surgical History Surgical History: other Additional surgical history: T&A - Social History Smoking Status: Current every day smoker Packs per day: half Smokeless Tobacco Status: No Alcohol use: none Drug use: none Current living situation: Home - Independent Activity Level: Independent ambulation Recent Out of Country Travel Within the Last 8 Weeks: No Exposure or Possible Exposure to Illness During Travel: No - Family History Maternal Grandmother Living Status: Still Living Hx Family Cardiac Disorders: No Hx Family Respiratory Disorders: No Hx Family Cancer: No Hx Family GI Disorders: Yes (chron's) Hx Family Endocrine Disorder: Yes (diabetic) Hx Family Neuromuscular Disorders: No Hx Family Neurologic Disorders: No Hx Family HEENT Disorders: No Hx Family Autoimmune Disorders: No Obstetrical History - Pregnancies : 2 Para: 1 Term: 1 : 0 Ab's: 0 Livin - History/Complications History/Complications: Previous born at 37 weeks gestation Medications and Allergies Vitamins 1 tab PO DAILY 01/25/18 [History] Allergy/AdvReac Type Severity Reaction Status Date / Time No Known Allergies Allergy Verified 02/11/18 22:05 Review of System OB - Constitutional Constitutional ROS IM: as per HPI - Gastrointestinal Gastrointestinal: as per HPI - Genitourinary Genitourinary: as per HPI Exam - Constitutional Constitutional: well developed, well nourished, no acute distress - Neck Neck exam: full ROM, normal inspection - Lungs Respiratory exam: CTAB - Cardiovascular Cardiovascular exam: RRR, +S1, +S2 - Abdomen Abdomen: Present: bowel sounds normal, gravid, non tender - Extremities Extremities exam: full ROM, normal inspection, warm - Vulva Vulva: bilateral: normal - Vagina Vagina: Present: normal moisture - Cervix Dilation: 6 Effacement: 100 Station: -1 - Uterus Uterus exam: Present: normal size Results Result Diagrams: 02/17/18 14:50 Abnormal lab results WBC 13.7 K/mcL (4.3-11.1) H 02/17/18 14:50 Neutrophils # 10.5 K/mcL (1.6-8.9) H 02/17/18 14:50 Clumped Platelets Few (Not Present) A 02/17/18 14:50 All other labs normal. - VTE Reasons for not Prescribing Prophylaxis: Treatment not Indicated - Low risk for VTE
[2018-02-17] MEDS ORDERED: Oxytocin 20 units/ LR 1000 mL 20 UNIT/1,000 ML BAG IVC ONE (17:28)
--- NOTE | 2018-02-17 17:39 | OB/GYN Procedure Note ---
Delivery - Delivery Date: 02/17/18 Provider: Rosanna San (Jane Quiroga CNM ) Intrapartum events: none Delivery induction: none Delivery monitor: external FHT, external uterine Anesthesia: none Quantitated Blood Loss: 50 - (s) Infant A Infant Delivery Date: 02/17/18 Delivery Time: 17:27 Presentation: vertex Position: DONNA Route of delivery: Gender: Female Viability: Viable Pounds: 5 Ounces: 11 Weight Gram: 2.59 kg at 1 minute: 8 at 5 mins: 9 Shoulder Dystocia: not encountered Specimens collected: cord blood Placenta: spontaneous Cord: 3 umbilical vessels - Repair Episiotomy: none Laceration Description: Labial (Right superficial, no repair required) - Complications Delivery complications: none Delivery comments: The patient was complete and pushing with epidural anesthesia with a spontaneous vaginal delivery in the DONNA position of a vigorous female infant weighing 5 lbs. 11 oz. with Apgars of 8 at 1 minute and 9 at 5 minutes. Infant was placed on the maternal abdomen. The cord was clamped and cut after pulsations ceased. Cord blood obtained. The placenta was delivered spontaneous and intact with an accessory lobe noted. Right labial laceration was superficial, hemostatic and not repaired. No cervical, vaginal or perineal lacerations visualized. Estimated blood loss 50 mL, complications none. Both mother and infant recovering in stable condition in the LDR. Delivery performed with Jane Quiroga CNM - Disposition Mom disposition: stable in LDR disposition: stable in LDR
--- NOTE | 2018-02-17 18:38 | Event Note ---
Date of Encounter: 02/17/18 Time of Encounter: 18:[address] San Under maternal effort, spontaneous vaginal delivery of viable female infant over intact perineum. Right labial laceration noted to be hemostatic so no repair was needed. Infant to maternal abdomen for drying and stimulation. Cord clamped and cut after pulsation ceased. Cord blood collected. Spontaneous delivery of intact placenta. Accessory lobe noted. EBL 50 mL's. Mother and stable in Kangaroo care for two hour recovery. No meconium, nuchal cord or shoulder dystocia encountered. Dr. San gowned and gloved for entirety of delivery.
[2018-02-17] MEDS ORDERED: Benzocaine/Menthol 56 GM AEROSOL SPRAY TP PRN (19:19)
[2018-02-17] MEDS ORDERED: Acetaminophen 325 MG TABLET PO PRN (19:19)
[2018-02-17] MEDS ORDERED: Oxytocin 20 units/ LR 1000 mL 20 UNIT/1,000 ML BAG IVC SCH (19:19)
[2018-02-17] MEDS ORDERED: Rho Immune Globulin 1,500 UNIT SYRINGE IM ONE ×2 (19:19→20:00)
[2018-02-17] MEDS ORDERED: Penicillin G Potassium 2,500,000 UNIT in 0.9 % Sodium Chloride 100 ML IVPB SCH (20:00)
[2018-02-17] MEDS: Ibuprofen 600 MG TABLET PO PRN (20:20)
[2018-02-18] MEDS: Ibuprofen 600 MG TABLET PO PRN ×2 (02:43→10:44)
[2018-02-18 07:57] VITALS: BP 132/87
[2018-02-18] MEDS ORDERED: Prenatal Vit/FA 1 EACH TABLET PO SCH (09:00)
[2018-02-18] MEDS ORDERED: Rho Immune Globulin 1,500 UNIT SYRINGE IM ONE (10:00)
--- NOTE | 2018-02-18 10:15 | Discharge Summary ---
Date of Encounter: 02/18/18 Time of Encounter: 10:12 - Discharge Diagnosis (1) Vaginal delivery Priority: Primary Status: Acute Comments: S/P vaginal delivery day 1 Meeting all day 1 milestones Pain well controlled Ambulating well Normal appetite Voiding and +BM Light lochia Formula feeding but wants to breastfeed. consult and breast pump Mood appropriate Discussed safe spacing, considering IUD vs tubal ligation Healthy female , 5lb 11oz, apgars 8/9 Mom well to discharge to home (2) 38 weeks gestation of Priority: Primary Status: Acute Comments: Delivered at 38+1 GA (3) Rh negative status during Priority: Secondary Status: Acute Comments: Mom A- Baby A+ Will need rhogam Qualifiers: Trimester: third trimester Qualified Code(s): O09.893 - Supervision of other high risk pregnancies, third trimester; Z67.91 - Unspecified blood type, Rh negative - Discharge Medications Prescriptions: RX: Ibuprofen [Motrin] 600 mg PO Q6HR PRN #30 tablet PRN Reason: Cramping Breast Pump [BREAST PUMP] 1 each .ROUTE AD #1 each RX: Docusate [Colace] 100 mg PO BID #30 capsule RX: Ferrous Sulfate 325 mg PO DAILY@0800 #90 tablet Home Medications: Vitamins 1 tab PO DAILY 01/25/18 [History] Breast Pump [BREAST PUMP] 1 each .ROUTE AD #1 each 02/18/18 [Rx] RX: Acetaminophen [Tylenol] 650 mg PO Q6HR PRN tablet 02/18/18 [Rx] RX: Benzocaine/Menthol [place] [Dermoplast [place]] 1 appl TP QID PRN aerosol 02/18/18 [Rx] RX: Docusate [Colace] 100 mg PO BID #30 capsule 02/18/18 [Rx] RX: Ferrous Sulfate 325 mg PO DAILY@0800 #90 tablet 02/18/18 [Rx] RX: Ibuprofen [Motrin] 600 mg PO Q6HR PRN #30 tablet 02/18/18 [Rx] Allergies/Adverse Reactions: Allergy/AdvReac Type Severity Reaction Status Date / Time No Known Allergies Allergy Verified 02/11/18 22:05 Data Procedures and tests throughout hospitalization: Laboratory Tests 02/17/18 02/17/18 02/17/18 14:03 14:50 14:50 WBC 13.7 H RBC 4.21 Hgb 12.0 Hct 36.2 MCV 86.0 MCH 28.5 MCHC 33.1 RDW 12.6 Plt Count 285 MPV 11.5 Immature Gran % 0.7 Seg Neutrophils % 76.9 Lymphocytes % 17.9 Monocytes % 4.1 Eosinophils % 0.1 Basophils % 0.3 Neutrophils # 10.5 H Lymphocytes # 2.5 Monocytes # 0.6 Eosinophils # 0.0 Basophils # 0.0 Clumped Platelets Few A Urine Opiates Screen Negative Ur Barbiturates Screen Negative Ur Phencyclidine Scrn Negative Ur Amphetamines Screen Negative U Benzodiazepines Scrn Negative Urine Cocaine Screen Negative U Marijuana (THC) Screen Negative Ur Drug Screen Interp See Below Hep Bs Antigen Nonreactive Specimen Rejected Screen Baby's Blood Type Mother's Blood Type Rhogam Indicated Rhogam Req for Mother 02/17/18 02/17/18 14:50 17:55 WBC RBC Hgb Hct MCV MCH MCHC RDW Plt Count MPV Immature Gran % Seg Neutrophils % Lymphocytes % Monocytes % Eosinophils % Basophils % Neutrophils # Lymphocytes # Monocytes # Eosinophils # Basophils # Clumped Platelets Urine Opiates Screen Ur Barbiturates Screen Ur Phencyclidine Scrn Ur Amphetamines Screen U Benzodiazepines Scrn Urine Cocaine Screen U Marijuana (THC) Screen Ur Drug Screen Interp Hep Bs Antigen Specimen Rejected Volume Screen NEGATIVE Baby's Blood Type A RH POSITIVE Mother's Blood Type A RH NEGATIVE Rhogam Indicated YES Rhogam Req for Mother 1 Labs on day of discharge: Labs from last 24 hours 02/17/18 02/17/18 02/17/18 17:55 14:50 14:50 WBC RBC Hgb Hct MCV MCH MCHC RDW Plt Count MPV Immature Gran % Seg Neutrophils % Lymphocytes % Monocytes % Eosinophils % Basophils % Neutrophils # Lymphocytes # Monocytes # Eosinophils # Basophils # Clumped Platelets Urine Opiates Screen Ur Barbiturates Screen Ur Phencyclidine Scrn Ur Amphetamines Screen U Benzodiazepines Scrn Urine Cocaine Screen U Marijuana (THC) Screen Ur Drug Screen Interp Hep Bs Antigen Nonreactive Specimen Rejected Volume Screen NEGATIVE Baby's Blood Type A RH POSITIVE Mother's Blood Type A RH NEGATIVE Rhogam Indicated YES Rhogam Req for Mother 1 02/17/18 02/17/18 14:50 14:03 WBC 13.7 H RBC 4.21 Hgb 12.0 Hct 36.2 MCV 86.0 MCH 28.5 MCHC 33.1 RDW 12.6 Plt Count 285 MPV 11.5 Immature Gran % 0.7 Seg Neutrophils % 76.9 Lymphocytes % 17.9 Monocytes % 4.1 Eosinophils % 0.1 Basophils % 0.3 Neutrophils # 10.5 H Lymphocytes # 2.5 Monocytes # 0.6 Eosinophils # 0.0 Basophils # 0.0 Clumped Platelets Few A Urine Opiates Screen Negative Ur Barbiturates Screen Negative Ur Phencyclidine Scrn Negative Ur Amphetamines Screen Negative U Benzodiazepines Scrn Negative Urine Cocaine Screen Negative U Marijuana (THC) Screen Negative Ur Drug Screen Interp See Below Hep Bs Antigen Specimen Rejected Screen Baby's Blood Type Mother's Blood Type Rhogam Indicated Rhogam Req for Mother Date of admission: 02/17/18 13:48 Primary care physician: Kami Parra MD Consults: 02/17/18 19:19 Consult to Home Comfort Advisor [CONS] Routine Comment: Vaginal delivery, consult needed 02/18/18 01:40 Consult to Hand Bookbinder (W&C) [CONS] Routine Reason For Exam: Reason for SW Consult: Previous drug history 02/18/18 10:07 Consult to Home Comfort Advisor [CONS] Routine Comment: Discharging clinician: Kami Norwood Anticipated date of discharge: 02/18/18 - Patient Status Disposition: Home, Self-Care Condition: Good Functional capacity at discharge: independent ambulation Overall status at discharge: patient is progressing back to baseline - Discharge Instructions Follow Up With: Kami Parra MD [Primary Care Provider] - Francy Montilla CNM [Non-Partnered Physician] - - Diet and Activity Activity: resume usual activities as tolerated Diet: advance to your usual diet Hospital Course Reason for admission: active labor Delivery: Episiotomy: none Laceration: other (Superficial right labial laceration) Other procedures: none complications: none Discharge diagnosis: IUP at term delivered baby: female Hospital course: The patient was complete and pushing with epidural anesthesia with a spontaneous vaginal delivery in the DONNA position of a vigorous female infant weighing 5 lbs. 11 oz. with Apgars of 8 at 1 minute and 9 at 5 minutes. was placed on the maternal abdomen. The cord was clamped and cut after pulsations ceased. Cord blood obtained. The placenta was delivered spontaneous and intact with an accessory lobe noted. Right labial laceration was superficial, hemostatic and not repaired. No cervical, vaginal or perineal lacerations visualized. Estimated blood loss 50 mL, complications none. Both mother and recovering in stable condition in the LDR. Delivery performed with Jane Quiroga CNM Time Attestation: Total time spent providing and/or coordinating discharge services: Time Spent: Less than 30 minutes Exam - Constitutional Vitals: Temp Pulse Resp BP Pulse Ox 97.9 F 68 14 132/87 97 02/18/18 07:56 02/18/18 07:56 02/18/18 07:56 02/18/18 07:56 02/18/18 07:56 General appearance IM: A&O X 3, no acute distress - Respiratory Respiratory exam: Present: CTAB. Absent: accessory muscle use, rales, respiratory distress, rhonchi, wheezes - Cardiovascular Cardiovascular exam IM: Present: RRR, +S1, +S2 - GI/Abdominal GI/Abdominal exam IM: normal bowel sounds, soft - Uterine Tone: Firm Uterus Position: At Umbilicus - Extremities Exam Extremities exam IM: Present: radial pulses palpable and symmetrical. Absent: c lolis tenderness, pedal edema, tenderness - Neurological Exam Neurological exam: CN II-XII intact, normal gait, oriented X3, no focal deficits - Psychiatric Additional comments: Mood appropriate - Attending Attestation I examined this patient and my medical decision-making was reviewed with the Resident Physician. I agree with the documented findings, disposition and treatment plan as described. Mark MARAVILLA CNM
== END 2018-02-18 14:30 | disposition home or self-care (01) | DRG 560 ==
LOC: 1NENULAB → OBSVTOIN 13:48 → 1NENUOBS 20:10
PROVIDERS: ADMIT Registered Nurse; ATTEND Registered Nurse

== ENCOUNTER 2018-10-23 10:41 | Observation (INO) ==
[2018-10-23] MEDS ORDERED: Ringers Solution, Lactated 1,000 ML IVC ONE (11:13)
[2018-10-23] MEDS ORDERED: Ondansetron 4 MG/2 ML VIAL IVP ONE (11:13)
[2018-10-23] MEDS ORDERED: 0.9 % Sodium Chloride 1,000 ML ONE (11:17)
[2018-10-23 11:44] LABS: Basophils % 0.2 %; Eosinophils % 0.1 %; Hemoglobin 11.3 g/dL (11.5-15.4); Immature Granulocytes % 0.4 % (0-4); Lymphocytes # 1.6 K/mcL (0.6-4.6); Lymphocytes % 8.6 %; Mean Corpuscular HGB Conc 32.3 g/dL (31.6-35.5); Mean Corpuscular Hemoglobin 27.8 pg (28.0-33.3); Mean Platelet Volume 9.9 fL (9.4-12.4); Monocytes # 0.6 K/mcL (0.0-1.3); Monocytes % 3.1 %; Neutrophils # 16.2 K/mcL (1.6-8.9); Platelet Count 316 K/mcL (140-400); Red Blood Count 4.07 M/mcL (3.82-4.97); Red Cell Distribution Width 13.2 % (11.5-14.5); Segmented Neutrophils % 87.6 %; White Blood Count 18.5 K/mcL (4.3-11.1)
[2018-10-23 11:45] LABS: Bilirubin,Urine Negative (Negative); Blood,Urine Negative (Negative); Clarity,Urine Clear (Clear); Color,Urine Yellow (Yellow); Glucose,Urine (UA) Normal (Normal); Ketones,Urine Negative (Negative); Leukocyte Esterase,Urine Negative (Negative); Nitrite,Urine Negative (Negative); Protein,Urine 30 mg/dL (Neg-Trace); Urobilinogen,Urine Normal (Normal)
[2018-10-23 11:48] LABS: Bacteria,Urine Few per hpf (None-Few); RBC,Urine 0-3 per hpf (0-3); Squamous Epithelial Cell,Urine Many per lpf (None-Few); WBC,Urine 15-30 per hpf (0-3)
[2018-10-23 11:58] LABS: Mucus,Urine Moderate (Few)
[2018-10-23 12:05] LABS: BUN/Creatinine Ratio 14 (6-26); Blood Urea Nitrogen 9 mg/dL (6-20); Calcium 8.5 mg/dL (8.6-10.3); Carbon Dioxide 23 mEq/L (23-29); Chloride 106 mEq/L (98-107); Glucose 93 mg/dL (70-105); Osmolality,Calculated 278 (280-300); Potassium 3.8 mEq/L (3.5-5.1); Sodium 135 mEq/L (136-145); eGFR For African Americans > 60 (> 60); eGFR For Non-African Americans > 60 (> 60)
[2018-10-23] MEDS ORDERED: Ringers Solution, Lactated 1,000 ML IVC SCH (13:35)
[2018-10-23] MEDS ORDERED: Ondansetron 4 MG/2 ML VIAL IVP PRN (13:35)
[2018-10-23] MEDS ORDERED: cefTRIAXone 1,000 MG in 0.9 % Sodium Chloride Mini Bag 100 ML IVPB ONE (13:35)
[2018-10-23] MEDS ORDERED: cefTRIAXone 1,000 MG in Water for inj. (sterile) 10 ML IVP ONE ×2 (14:05→15:00)
[2018-10-23] MEDS: Nicotine 21 MG PATCH.TD24 TD SCH (15:18)
[2018-10-23 17:42] LABS: Adenovirus F 40/41 PCR Not detected (Not detect); Astrovirus PCR Not detected (Not detect); C.difficile Toxin A/B Gene PCR Not detected (Not detect); Campylobacter by PCR Not detected (Not detect); Cryptosporidium by PCR Not detected (Not detect); Cyclospora cayetanensis PCR Not detected (Not detect); E. coli O157 by PCR Not detected (Not detect); Entamoeba histolytica PCR Not detected (Not detect); Enteroaggregative E.coli(EAEC) Not detected (Not detect); Enteropathogenic E.coli(EPEC) Not detected (Not detect); Enterotoxigenic E.coli (ETEC) Not detected (Not detect); Giardia lamblia PCR Not detected (Not detect); Norovirus GI/GII PCR Not detected (Not detect); Plesiomonas shigelloides PCR Not detected (Not detect); Rotavirus A PCR Not detected (Not detect); Salmonella PCR Not detected (Not detect); Sapovirus PCR Not detected (Not detect); Shig/EnteroinvasiveE coli EIEC Not detected (Not detect); Shigalike tox-prod E coli STEC Not detected (Not detect); Vibrio PCR Not detected (Not detect); Vibrio cholerae PCR Not detected (Not detect); Yersinia enterocolitica PCR Not detected (Not detect)
[2018-10-23] MEDS: Acetaminophen 325 MG TABLET PO PRN (20:37)
[2018-10-23] MEDS: Famotidine 20 MG/2 ML VIAL IVP SCH (20:37)
[2018-10-23 20:50] LABS: Hematocrit 31.1 % (35.3-44.9); Hemoglobin 10.2 g/dL (11.5-15.4)
[2018-10-24] MEDS: Acetaminophen 325 MG TABLET PO PRN (04:40)
[2018-10-24 05:50] LABS: Basophils % 0.2 %; Eosinophils # 0.1 K/mcL (0.0-0.6); Eosinophils % 0.9 %; Hematocrit 29.3 % (35.3-44.9); Hemoglobin 9.4 g/dL (11.5-15.4); Immature Granulocytes % 0.5 % (0-4); Lymphocytes # 3.3 K/mcL (0.6-4.6); Lymphocytes % 29.8 %; Mean Corpuscular HGB Conc 32.1 g/dL (31.6-35.5); Mean Corpuscular Hemoglobin 28.2 pg (28.0-33.3); Mean Platelet Volume 9.8 fL (9.4-12.4); Monocytes # 0.6 K/mcL (0.0-1.3); Monocytes % 5.2 %; Platelet Count 233 K/mcL (140-400); Red Blood Count 3.33 M/mcL (3.82-4.97); Red Cell Distribution Width 13.3 % (11.5-14.5); Segmented Neutrophils % 63.4 %; White Blood Count 11.1 K/mcL (4.3-11.1)
[2018-10-24 06:06] LABS: BUN/Creatinine Ratio 9 (6-26); Blood Urea Nitrogen 6 mg/dL (6-20); Calcium 7.7 mg/dL (8.6-10.3); Carbon Dioxide 25 mEq/L (23-29); Chloride 109 mEq/L (98-107); Glucose 84 mg/dL (70-105); Osmolality,Calculated 281 (280-300); Potassium 3.6 mEq/L (3.5-5.1); Sodium 137 mEq/L (136-145); eGFR For African Americans > 60 (> 60); eGFR For Non-African Americans > 60 (> 60)
[2018-10-24] MEDS: Famotidine 20 MG/2 ML VIAL IVP SCH (06:33)
[2018-10-24] MEDS: Nicotine 21 MG PATCH.TD24 TD SCH (08:09)
[2018-10-24 09:00] VITALS: BP 108/74
[2018-10-24] MEDS ORDERED: Scopolamine Patch 1.5 MG PATCH.TD72 TD SCH (09:00)
[2018-10-24] MEDS ORDERED: Prenatal Vit/FA 1 EACH TABLET PO SCH (09:00)
[2018-10-24] MEDS ORDERED: cefTRIAXone 1,000 MG in 0.9 % Sodium Chloride Mini Bag 100 ML IVPB ONE (13:00)
[2018-10-24 13:08] LABS: Hematocrit 33.7 % (35.3-44.9); Hemoglobin 10.9 g/dL (11.5-15.4)
== END 2018-10-24 14:29 | disposition home or self-care (01) ==
LOC: 1NENULAB → 1NENUOBS 13:46
PROVIDERS: ADMIT Advanced Practice Midwife; ATTEND Advanced Practice Midwife

== ENCOUNTER 2019-01-13 16:54 | Inpatient (IN) ==
[2019-01-13] MEDS ORDERED: Oxytocin 20 units/ LR 1000 mL 20 UNIT/1,000 ML BAG IVC ONE ×2 (17:08→19:42)
--- NOTE | 2019-01-13 17:19 | OB/GYN History & Physical ---
Date of Encounter: 01/13/19 Time of Encounter: 17:01 Assessment and Plan (1) Anemia Current visit: No Status: Acute continue iron Qualifiers: Anemia type: iron deficiency Qualified Code(s): D50.8 - Other iron deficiency anemias (2) uterine contractions in third trimester, antepartum Current visit: No Status: Acute Admit for labor. Pt delivered shortly after arrival (3) Rh negative status during Current visit: No Status: Acute rhogam if needed Qualifiers: Trimester: third trimester Qualified Code(s): O26.893 - Other specified related conditions, third trimester; Z67.91 - Unspecified blood type, Rh negative History of Present Illness Chief complaint: labor HPI: Ms. Ayala is a 23 year old female presenting at 35w3d with c/o contractions that started at 3pm. No other complaints. This is complicated by labor for which she received celestone. It is also compli cated by short interval between pregnancies and chronic BV. A negative Rubella immune Serologies negative GBS unknown and not treated due to precipitous delivery Past Med Surg Social Fam HX - Past Medical History Medical history: no medical history Psychiatric history: anxiety, depression - Past Surgical History Surgical History: no surgical history Additional surgical history: T&A - Social History Smoking Status: Current every day smoker Smokeless Tobacco Status: No Alcohol use: none Drug use: none - Family History Maternal Grandmother Living Status: Still Living Hx Family Cardiac Disorders: No Hx Family Respiratory Disorders: No Hx Family Cancer: No Hx Family GI Disorders: Yes (crohns) Hx Family Endocrine Disorder: Yes (diabetic) Hx Family Neuromuscular Disorders: No Hx Family Neurologic Disorders: No Hx Family HEENT Disorders: No Hx Family Autoimmune Disorders: No Obstetrical History - Pregnancies : 3 Para: 2 Term: 2 Livin Medications and Allergies Vitamins 1 tab PO DAILY 01/25/18 [History] Acetaminophen [Tylenol] 650 mg PO Q6HR PRN tablet 10/24/18 [Rx] Cephalexin [Keflex] 500 mg PO BID 8 Days #16 capsule 10/24/18 [Rx] Ferrous Gluconate 324 mg PO BID #180 tablet 10/24/18 [Rx] Nicotine Patch [Nicoderm] 21 mg TD DAILY #30 patch.td24 10/24/18 [Rx] Allergy/AdvReac Type Severity Reaction Status Date / Time No Known Allergies Allergy Verified 07/29/18 14:44 Review of System OB All systems PM: reviewed and no additional remarkable complaints except as stated Exam - Constitutional Constitutional: well developed, thin - HEENT HEENT: Mucus Membranes Moist - Lungs Respiratory exam: CTAB - Cardiovascular Cardiovascular exam: RRR - Abdomen Abdomen: Present: gravid - Extremities Extremities exam: normal inspection - Cervix Dilation: 7 (per RN on arrival) Effacement: 100 - Anus/Rectum Anus/Rectum: Present: normal perianal skin Results All other labs normal.
[2019-01-13] MEDS ORDERED: Famotidine 20 MG/2 ML VIAL IVP PRN (17:24)
[2019-01-13] MEDS ORDERED: Metoclopramide 10 MG/2 ML VIAL IVP PRN (17:24)
[2019-01-13] MEDS ORDERED: Naloxone 0.4 MG/ML INJ IVP PRN (17:24)
[2019-01-13] MEDS ORDERED: Ondansetron 4 MG/2 ML VIAL IVP PRN (17:24)
[2019-01-13] MEDS ORDERED: Ibuprofen 600 MG TABLET PO ONE (17:24)
--- NOTE | 2019-01-13 17:29 | OB/GYN Procedure Note ---
Delivery - Delivery Date: 01/13/19 Provider: Francy Briscoe Intrapartum events: precipitous labor- <3hr Delivery induction: none Delivery augmentation: rupture of membranes Delivery monitor: external FHT, external uterine Anesthesia: none Quantitated Blood Loss: 100 - (s) A Delivery Date: 01/13/19 Infant Delivery Time: 17:05 Presentation: vertex Position: OA Route of delivery: Gender: Male Viability: Viable Pounds: 5 Ounces: 9 Weight Gram: 2.53 kg at 1 minute: 8 at 5 mins: 9 Shoulder Dystocia: not encountered Specimens collected: cord blood Placenta: spontaneous Cord: 3 umbilical vessels - Repair Episiotomy: none Laceration Description: None - Complications Delivery complications: none - Disposition Mom disposition: stable in LDR disposition: stable in LDR - Comments Comments: Pt presented 7cm and progressed rapidly to for viable male weighing 5lbs 9oz with apgars 8 at one minute and 9 at five minutes. After pulsations ceased the cord was clamped and cut and the placenta delivered spontaneously. No lacerations noted. EBL 100ml. Mother and baby stable in kangaroo care following .
[2019-01-13 17:48] LABS: Basophils % 0.2 %; Eosinophils % 0.2 %; Hematocrit 34.6 % (35.3-44.9); Hemoglobin 11.5 g/dL (11.5-15.4); Immature Granulocytes % 0.5 % (0-4); Lymphocytes % 22.8 %; Mean Corpuscular HGB Conc 33.2 g/dL (31.6-35.5); Mean Corpuscular Hemoglobin 27.4 pg (28.0-33.3); Mean Corpuscular Volume 82.6 fL (83.0-100.0); Mean Platelet Volume 10.8 fL (9.4-12.4); Monocytes # 0.9 K/mcL (0.0-1.3); Monocytes % 5.2 %; Neutrophils # 12.4 K/mcL (1.6-8.9); Platelet Count 321 K/mcL (140-400); Red Blood Count 4.19 M/mcL (3.82-4.97); Red Cell Distribution Width 13.2 % (11.5-14.5); Segmented Neutrophils % 71.1 %; White Blood Count 17.4 K/mcL (4.3-11.1)
[2019-01-13] MEDS ORDERED: Measles/Mumps/Rubella Vacc 0.5 ML VIAL SQ PRN (20:29)
[2019-01-13] MEDS ORDERED: Acetaminophen 325 MG TABLET PO PRN (20:29)
[2019-01-13] MEDS ORDERED: Rho Immune Globulin 1,500 UNIT SYRINGE IM PRN (20:29)
[2019-01-13] MEDS ORDERED: Oxytocin 20 units/ LR 1000 mL 20 UNIT/1,000 ML BAG IVC SCH (20:29)
[2019-01-13] MEDS ORDERED: Ibuprofen 600 MG TABLET PO PRN (20:29)
[2019-01-14] MEDS ORDERED: Prenatal Vit/FA 1 EACH TABLET PO SCH (09:00)
[2019-01-14 09:21] VITALS: BP 119/76
--- NOTE | 2019-01-14 10:43 | Discharge Summary ---
Date of Encounter: 01/14/19 Time of Encounter: 10:41 - Discharge Diagnosis (1) Vaginal delivery Priority: Primary Status: Acute Comments: Feeling well Tolerating regular diet Pain well-controlled with by mouth pain meds Ambulating independently Voiding independently Lochia light Passing flatus, no BM yet Vital signs stable Discharge home today - Discharge Medications Prescriptions: New Ibuprofen [Motrin] 600 mg PO Q6HR PRN #30 tablet PRN Reason: Cramping Docusate [Colace] 100 mg PO BID #30 capsule Continued Vitamins 1 tab PO DAILY Cephalexin [Keflex] 500 mg PO BID 8 Days #16 capsule Acetaminophen [Tylenol] 650 mg PO Q6HR PRN tablet PRN Reason: cramping Nicotine Patch [Nicoderm] 21 mg TD DAILY #30 patch.[id number] Discontinued Ferrous Gluconate 324 mg PO BID #180 tablet Home Medications: Vitamins 1 tab PO DAILY 01/25/18 [History] Acetaminophen [Tylenol] 650 mg PO Q6HR PRN tablet 10/24/18 [Rx] Cephalexin [Keflex] 500 mg PO BID 8 Days #16 capsule 10/24/18 [Rx] Nicotine Patch [Nicoderm] 21 mg TD DAILY #30 patch.td24 10/24/18 [Rx] Docusate [Colace] 100 mg PO BID #30 capsule 01/14/19 [Rx] Ibuprofen [Motrin] 600 mg PO Q6HR PRN #30 tablet 01/14/19 [Rx] Allergies/Adverse Reactions: Allergy/AdvReac Type Severity Reaction Status Date / Time No Known Allergies Allergy Verified 07/29/18 14:44 Data Procedures and tests throughout hospitalization: Laboratory Tests 01/13/19 01/13/19 17:10 18:28 WBC 17.4 H RBC 4.19 Hgb 11.5 Hct 34.6 L MCV 82.6 L MCH 27.4 L MCHC 33.2 RDW 13.2 Plt Count 321 MPV 10.8 Immature Gran % 0.5 Seg Neutrophils % 71.1 Lymphocytes % 22.8 Monocytes % 5.2 Eosinophils % 0.2 Basophils % 0.2 Neutrophils # 12.4 H Lymphocytes # 4.0 Monocytes # 0.9 Eosinophils # 0.0 Basophils # 0.0 Screen NEGATIVE Baby's Blood Type A RH POSITIVE Mother's Blood Type A RH NEGATIVE Rhogam Indicated YES Rhogam Req for Mother 1 Labs on day of discharge: Labs from last 24 hours 01/13/19 01/13/19 18:28 17:10 WBC 17.4 H RBC 4.19 Hgb 11.5 Hct 34.6 L MCV 82.6 L MCH 27.4 L MCHC 33.2 RDW 13.2 Plt Count 321 MPV 10.8 Immature Gran % 0.5 Seg Neutrophils % 71.1 Lymphocytes % 22.8 Monocytes % 5.2 Eosinophils % 0.2 Basophils % 0.2 Neutrophils # 12.4 H Lymphocytes # 4.0 Monocytes # 0.9 Eosinophils # 0.0 Basophils # 0.0 Screen NEGATIVE Baby's Blood Type A RH POSITIVE Mother's Blood Type A RH NEGATIVE Rhogam Indicated YES Rhogam Req for Mother 1 Date of admission: 01/13/19 16:54 Consults: 01/13/19 20:29 Consult to Language Arts Teacher [CONS] Routine Comment: Vaginal delivery, consult needed Consult to Mirror Machine Feeder [CONS] Routine Reason for SW Consult: history of depression Discharging clinician: Blanche King Anticipated date of discharge: 01/14/19 - Patient Status Disposition: Home, Self-Care Condition: Good Functional capacity at discharge: independent ambulation Overall status at discharge: patient is progressing back to baseline - Discharge Instructions Follow Up With: Francy Briscoe CNM [Non-Partnered Physician] - - Diet and Activity Activity: increase activity as tolerated Diet: regular diet Hospital Course Reason for admission: active labor, labor Delivery: Episiotomy: none Laceration: none Other procedures: none complications: other (desires tubal ligation) Discharge diagnosis: delivery baby: male Time Attestation: Total time spent providing and/or coordinating discharge services: Time Spent: Less than 30 minutes Exam - Constitutional Vitals: Temp Pulse Resp BP Pulse Ox 98.3 F 68 16 119/76 96 01/14/19 07:30 01/14/19 07:30 01/14/19 07:30 01/14/19 07:30 01/14/19 07:30 General appearance IM: A&O X 3, pleasant, no acute distress, answers questions appropriately - Respiratory Respiratory exam: Present: CTAB - Cardiovascular Cardiovascular exam IM: Present: RRR, +S1, +S2 - GI/Abdominal GI/Abdominal exam IM: normal bowel sounds, no peritoneal signs - Rectal Rectal exam: deferred - Uterine Tone: Firm Uterus Position: 2 Fingers Below Umbilicus, Midline - Extremities Exam Extremities exam IM: Present: full ROM, normal capillary refill, normal inspection, radial pulses palpable and symmetrical - Neurological Exam Neurological exam: alert, CN II-XII intact, normal gait, oriented X3, reflexes normal, no focal deficits, strengths equal and symetr throughout - Psychiatric Additional comments: Signs and symptoms of depression discussed with patient and she verbalizes understanding of when to seek out
[2019-01-14] MEDS ORDERED: Etonogestrel 68 MG IMPLANT IL ONE (13:16)
[2019-01-14] MEDS ORDERED: Lidocaine -MPF 1% 5 ML AMPUL INFILT ONE (13:16)
--- NOTE | 2019-01-14 14:39 | OB/GYN Procedure Note ---
OB-CAMPUS MONITOR: Procedure - Diagnosis Date of procedure: 01/14/19 Pre-op diagnosis: Desires infertility Post-op diagnosis: same - Procedure Procedure: Nexplanon insertion Surgeon: Blanche King Was there an assistant front end manager present: No Anesthesia Type: Local (3mL lidocaine) Estimated blood loss (cc): 1 Fluids: other Disposition: no change Narrative: Informed consent was obtained and time out performed. Patient was placed in the supine position with arm in the appropriate position. Betadine was used to prep the arm in a sterile fashion. 1% lidocaine with epinephrine was used to anesthetize. The implant was inserted in the subcutaneous tissue to the liss ropriate length then the Nexplanon was released. Both myself and patient can palpate the herb without difficulty. Steri-Strips and a pressure dressing was applied. Patient tolerated the procedure well. She left the office ambulatory and was instructed on wound care to follow up PRN.
== END 2019-01-14 14:30 | disposition home or self-care (01) | DRG 560 ==
LOC: 1NENULAB 16:54 → 1NENUOBS 20:24
PROVIDERS: ADMIT Registered Nurse; ATTEND Registered Nurse